=== PATIENT | female | born 1945 | race Caucasian/White ===

== ENCOUNTER → 2016-09-17 | Outpatient (CLI) | payer OTHER, MEDICARE ==
[~2016-09-17] MED LIST: AMOXICILLIN 50500 MG PO; ASPIR 8181 MG PO; CHLORTHALIDONE25 MG PO; COENZYME Q1050 M1 PO; COLACE 100 MG100 MG PO; CRESTOR10 MG PO; DUONEB 2.5-0.5 M3 ML INH; DURLAZA162.5 MG PO; FENOFIBRATE160 MG PO; FLUCONAZOLE 10100 MG PO; GLIMEPIRIDE4 MG PO; HOME MEDICATION PO; HYDROCODON-ACE1 EAC7 PO; LEVAQUIN 500 M500 M2 PO; LISINOPRIL10 MG PO; MAGNESIUM OXID400 MG PO; MELATONIN1 MG PO; METFORMIN HCL500 MG PO; MILK OF MA2400 MG/10 PO; NORVASC5 MG PO; NOVOLOG100 UNIT/1 SUBQ; OXYCODONE HCL5 MG PO; PLAVIX 75 MG TA75 M1 PO; PRENATAL PO; RELION NOV100 UNIT/2 SUBQ; REQUIP 0.25 M0.25 M1 PO; SANTYL OINTMENT30 G1 TOP; TORSEMIDE5 MG PO; TYLENOL325 MG PO; VASOTEC10 MG PO
== END ==
LOC: HYPER 08:00
DX: L89.154 Pressure ulcer of sacral region, stage 4 (principal); E11.22 Type 2 diabetes mellitus with diabetic chronic kidney disease; N18.9 Chronic kidney disease, unspecified; G20 Parkinson's disease; N18.6 End stage renal disease; Z79.84 Long term (current) use of oral hypoglycemic drugs; Z95.1 Presence of aortocoronary bypass graft

== ENCOUNTER → 2016-11-26 | Outpatient (CLI) | payer OTHER, MEDICARE | LOC: HYPER 07:40 | DX: L89.154 Pressure ulcer of sacral region, stage 4 (principal); G20 Parkinson's disease; E11.22 Type 2 diabetes mellitus with diabetic chronic kidney disease; I12.9 Hypertensive chronic kidney disease with stage 1 through stage 4 chronic kidney disease, or unspecified chronic kidney disease; N18.9 Chronic kidney disease, unspecified; Z79.84 Long term (current) use of oral hypoglycemic drugs; Z85.038 Personal history of other malignant neoplasm of large intestine; Z95.1 Presence of aortocoronary bypass graft ==

== ENCOUNTER → 2017-01-03 | Outpatient (CLI) | payer OTHER, MEDICARE | LOC: HYPER 07:10 | DX: L89.154 Pressure ulcer of sacral region, stage 4 (principal); E11.22 Type 2 diabetes mellitus with diabetic chronic kidney disease; I12.9 Hypertensive chronic kidney disease with stage 1 through stage 4 chronic kidney disease, or unspecified chronic kidney disease; N18.9 Chronic kidney disease, unspecified; I25.10 Atherosclerotic heart disease of native coronary artery without angina pectoris; Z79.84 Long term (current) use of oral hypoglycemic drugs; Z85.038 Personal history of other malignant neoplasm of large intestine ==

== ENCOUNTER 2017-02-08 12:06 | Inpatient (IN) | payer OTHER, MEDICARE ==
[~2017-02-08] VITALS: Ht 157.5 cm; Wt 66.2 kg
--- NOTE | ~2017-02-08 | H ---
[facility] [place] [address] HISTORY AND PHYSICAL Name: ZENAIDA LAMAS Lencho Room #: 537-P [facility] IN ..#: [id number] Admission: 02/08/17 Attend Phys: Shea Martines MD Discharge: 02/11/17 Date of : 47 Report #: [id number] THIS REPORT FOR: //name// CC: Wyatt Martines DATE OF SERVICE: 02/08/2017 CHIEF COMPLAINT: Back pain. HISTORY OF PRESENT ILLNESS: The patient is a 71-year-old female with multiple medical problems, including history of osteoporosis, who has had back pain for 10 days or so. The patient states that back pain started gradually. She does not recall any falls. She normally walks with a walker, but at this time, it was very difficult for her to ambulate. She presented to the Emergency Room. X-ray showed T12 vertebral fracture, age undetermined. The patient reports previous C4 and C5 fractures. She also had hip fracture. She states that she cannot tolerate osteoporosis medications. PAST MEDICAL HISTORY: 1. Coronary artery disease, status post coronary artery bypass grafting surgery in 04/2016. 2. Non-STEMI in 04/2016. 3. Hypertension. 4. Dyslipidemia. 5. Diabetes mellitus type 2. 6. Carotid stenosis. 7. Chronic Lyme's disease. 8. Chronic sacral wound. CURRENT MEDICATIONS: The patient is on amoxicillin 500 mg t.i.d., aspirin 325 mg a day, Colace 100 mg as needed, enalapril 10 mg b.i.d., fenofibrate 160 mg a day, glimepiride 2 mg a day, torsemide 10 mg a day, magnesium oxide 400 mg b.i.d. FAMILY HISTORY: Reviewed and not pertinent to the patient's current condition. SOCIAL HISTORY: The patient lives by herself. She does not smoke cigarettes and does not drink alcohol. REVIEW OF SYSTEMS: As above in HPI section, all others negative. PHYSICAL EXAMINATION: GENERAL: The patient is an elderly female who looks uncomfortable due to ongoing symptoms. VITAL SIGNS: Her blood pressure now is 139/58, from 206/87. Heart rate is 95, [facility] [address] [place] [address] HISTORY AND PHYSICAL Name: ZENAIDA LAMAS Room #: 537-P [facility]#: [id number] Admission: 02/08/17 Attend Phys: Shea Martines MD Discharge: 02/11/17 Date of : 47 Report #: [id number] respiration is 18, and temperature is 98.7. HEENT: Pupils are equal. Eye movements are normal. Sclerae are anicteric. Oral mucosa is moist. Ear examination is deferred. NECK: Supple. Thyromegaly is not palpated. RESPIRATORY: Chest moves symmetrically with breathing. Lungs are clear to auscultation bilaterally. CARDIOVASCULAR: The patient has 2/6 systolic murmur. Heart rate is regular. GASTROINTESTINAL: Abdomen is soft, nondistended and nontender. Bowel sounds are present. Hepatomegaly or splenomegaly is not palpated. MUSCULOSKELETAL: There is no edema, cyanosis or clubbing. Range of motion is normal. NEUROLOGIC: The patient is alert and oriented x 3. Her examination is nonfocal, and she has no motor or sensory deficits. SKIN: Skin is dry and warm. The patient has chronic sacral wound, that is covered with dressing. LABORATORY DATA: Basic metabolic profile is essentially normal, except with glucose of 274. CBC shows mild anemia with hemoglobin of 11.1, which is higher than baseline. White count and platelets are normal. X-ray showed T12 vertebral fracture, age is not determined. ASSESSMENT AND PLAN: 1. Acute onset of the back pain, 10 days' duration, T12 vertebral fracture, age undetermined, suspected on the x-ray. For further evaluation, we will obtain CT scan, as well as consult interventional radiologist for possible kyphoplasty. 2. Accelerated hypertension. Likely related to pain. Blood pressure much improved since the patient came in here. Home medications will be continued. 3. Diabetes mellitus type 2. Elevated blood sugar of greater than 200. We will check hemoglobin A1c. Glimepiride will be continued unchanged. Sliding scale Humalog will be used for elevated blood sugars. 4. Coronary artery disease, history of non-ST elevation myocardial infarction, status post coronary artery bypass grafting surgery in 04/2016. Stable. The patient has no chest pain. 5. Prophylaxis. We will use SCDs, and avoid anticoagulation for anticipated kyphoplasty. <ELECTRONICALLY SIGNED> By: Shea Martines MD 02/16/17 1807 1702 1859 Shea Martines MD /nt
--- NOTE | ~2017-02-08 | D ---
[facility] [address] DISCHARGE SUMMARY Name: ADAMSZENAIDA Lencho Room #: 537-P [facility] IN .R.#: [id number] Admission: 02/08/17 Attend Phys: Shea Martines MD Discharge: 02/11/17 Date of : 47 Report #: [id number] THIS REPORT FOR: //name// CC: Wyatt Martines DATE OF SERVICE: 02/11/2017 HISTORY OF PRESENT ILLNESS: The patient is a 71-year-old female with multiple medical problems, who came to the hospital with severe back pain. Please refer to the admission H and P for details. In brief, the patient was found to have T12 vertebral fracture. HOSPITALIZATION COURSE: The patient was hospitalized for T12 vertebral fracture. Interventional radiologist was consulted. The patient had MRI done, that was consistent with acute or subacute fracture. The patient had kyphoplasty on 02/10/2017. After kyphoplasty, the patient did much better, and pain was much better controlled. The patient was seen and evaluated by physical therapist, and rehab and jail facility is recommended. Currently, the patient's condition is acceptable, as documented in the patient's chart. DISCHARGE DIAGNOSIS: T12 vertebral fracture, status post kyphoplasty on 02/10/2017. The pain is much better controlled. SECONDARY DIAGNOSES: Includes hypertension, dyslipidemia, myocardial infarction in April 2016, status post coronary artery bypass grafting surgery in April 2016, diabetes mellitus type 2, out of control with A1c of 8.2%; carotid stenosis, chronic Lyme disease, and chronic sacral wound, followed by wound care clinic. DISCHARGE MEDICATIONS: Please refer to the medication reconciliation list. FOLLOWUP PLAN: 1. Follow up in the wound care clinic next week as planned. 2. Follow up with the primary care physician in 1-2 weeks. [facility] [address] [place] [address] DISCHARGE SUMMARY Name: ZENAIDA LAMAS Room #: 537-P [facility] IN [facility]#: [id number] Admission: 02/08/17 Attend Phys: Shea Martines MD Discharge: 02/11/17 Date of : 47 Report #: [id number] I spent about 30 minutes to coordinate the patient's discharge from the hospital. <ELECTRONICALLY SIGNED> By: Shea Martines MD 02/16/17 1807 1353 1512 Shea Martines MD /nt
[2017-02-08 12:06] VITALS: BP 206/87; BP 2086/87
[2017-02-08] MEDS ORDERED: TORSEMIDE10 MG PO (12:58)
[2017-02-08] MEDS ORDERED: FENOFIBRATE160 MG PO (12:58)
[2017-02-08] MEDS ORDERED: AMARYL2 MG PO (12:58)
[2017-02-08] MEDS ORDERED: COLACE100 MG PO (12:58)
[2017-02-08] MEDS ORDERED: VASOTEC10 MG PO (12:59)
[2017-02-08] MEDS ORDERED: MAGNESIUM OXID400 MG PO (12:59)
[2017-02-08] MEDS ORDERED: ASPIRIN325 PO (12:59)
[2017-02-08] MEDS ORDERED: AMOXICILLIN500 M1 PO (13:01)
[2017-02-08 15:02] LABS: ABSOLUTE NEUTROPHILS 7.3 thou/uL (1.4-8.2); BASOPHILS 0.8 % (0.0-2.0); EOSINOPHILS 0.7 % (0.0-3.0); HEMATOCRIT 32.4 % (37.0-47.0); HEMOGLOBIN 11.1 gm/dL (12.0-15.0); LYMPHOCYTES 15.9 % (24.0-44.0); MCH 29.8 pg (26.0-34.0); MCHC 34.2 g/dL (28.0-37.0); MCV 86.9 fL (80.0-100.0); MONOCYTES 7.9 % (1.0-8.0); PLATELET COUNT 263 thou/uL (150-400); POLYS 74.7 % (36.0-66.0); RBC 3.72 mil/uL (4.20-5.00); RDW 13.7 % (10.5-14.5); WBC 9.7 thou/uL (4.0-11.0)
[2017-02-08 15:04] LABS: MANUAL DIFF NO
[2017-02-08 15:08] LABS: CALCIUM 10.1 mg/dL (8.5-10.1); CREATININE 1.3 mg/dL (0.6-1.0); POTASSIUM 3.9 mmol/L (3.5-5.1)
[2017-02-08 16:05] LABS: URINE BILIRUBIN NEGATIVE (Negative); URINE BLOOD NEGATIVE (Negative); URINE COLOR YELLOW; URINE GLUCOSE-RANDOM* NEGATIVE (Negative); URINE KETONES NEGATIVE (Negative); URINE LEUKOCYTES-REFLEX NEGATIVE (Negative); URINE PROTEIN (DIPSTICK) 2+ (Negative); URINE UROBILINOGEN 0.2 E.U./dl (0.2-1.0)
[2017-02-08 16:22] LABS: AMORPHOUS URATES Few /LPF (None Seen); HYALINE CASTS 0-3 Few /LPF (None Seen); SQUAMOUS 0-3 Few /LPF (0-3); URINE RBC 0-2 Rare /HPF (0-2); URINE WBC-REFLEX None Seen /HPF (0-5)
[2017-02-08 19:23] VITALS: BP 156/67
[2017-02-08 20:38] VITALS: BP 134/52
[2017-02-09 03:58] VITALS: BP 106/39
[2017-02-09 04:11] LABS: GLYCOHEMOGLOBIN (HGB A1C) 8.2 % (4.8-5.6)
[2017-02-09 07:34] VITALS: BP 105/45
[2017-02-09 15:58] VITALS: BP 120/51
[2017-02-09 17:57] LABS: PROTIME 10.8 Seconds (9.3-11.4)
[2017-02-09 20:00] VITALS: BP 124/35
[2017-02-10] VITALS (7 sets, daily range): BP systolic 107–161; BP diastolic 42–72
[2017-02-11 02:59] VITALS: BP 143/63
[2017-02-11 08:43] VITALS: BP 151/81
[2017-02-11] MEDS ORDERED: HYDROCODON-ACE1 EAC7 PO (13:59)
[2017-02-11] MEDS ORDERED: LOPERAMIDE 2 MG2 M1 PO (14:04)
== END 2017-02-11 15:25 | DRG 515 ==
LOC: ER 12:06 → EROBS 15:16 → 5S 15:16 → EROBS 16:54 → ER 16:54 → 5S 20:15
PROVIDERS: Emergency Medicine; Internal Medicine Endocrinology, Diabetes & Metabolism; Radiology Diagnostic Radiology
PROC: 0PU43JZ Supplement Thoracic Vertebra with Synthetic Substitute, Percutaneous Approach (ICD-10-PCS; principal; 2017-02-10)
PROC: 0PS43ZZ Reposition Thoracic Vertebra, Percutaneous Approach (ICD-10-PCS; principal; 2017-02-10)
DX: M80.08XA Age-related osteoporosis with current pathological fracture, vertebra(e), initial encounter for fracture (principal); E43 Unspecified severe protein-calorie malnutrition; A69.20 Lyme disease, unspecified; I10 Essential (primary) hypertension; E11.65 Type 2 diabetes mellitus with hyperglycemia; I25.10 Atherosclerotic heart disease of native coronary artery without angina pectoris; G20 Parkinson's disease; E78.5 Hyperlipidemia, unspecified; R19.7 Diarrhea, unspecified; L89.150 Pressure ulcer of sacral region, unstageable; Z53.29 Procedure and treatment not carried out because of patient's decision for other reasons; Z95.1 Presence of aortocoronary bypass graft; Z88.1 Allergy status to other antibiotic agents; Z88.2 Allergy status to sulfonamides; Z85.038 Personal history of other malignant neoplasm of large intestine; I25.2 Old myocardial infarction; Z88.6 Allergy status to analgesic agent; Z91.041 Radiographic dye allergy status; Z98.891 History of uterine scar from previous surgery; Z68.26 Body mass index [BMI] 26.0-26.9, adult; Z79.82 Long term (current) use of aspirin; Z79.899 Other long term (current) drug therapy; Z91.81 History of falling
CPT/HCPCS: 10086; 62110; 62900; 70005

== ENCOUNTER → 2017-04-11 | Outpatient (CLI) | payer OTHER, MEDICARE ==
[~2017-04-11] MED LIST changes: +AMARYL2 MG PO; +AMOXICILLIN500 M1 PO; +ASPIRIN325 PO; +COLACE100 MG PO; +LOPERAMIDE 2 MG2 M1 PO; +TORSEMIDE10 MG PO
--- NOTE | ~2017-04-11 | H ---
[facility] [place] [address] HISTORY AND PHYSICAL Name: ZENAIDA LAMAS Room #: [facility].#: [id number] Admission: Attend Phys: Ifeanyi Rodriguez MD Discharge: Date of : 47 Report #: [id number] THIS REPORT FOR: //name// CC: Wyatt Rodriguez DATE OF SERVICE: 02/09/2017 CHIEF COMPLAINT: Sacrococcygeal ulcer. HISTORY OF PRESENT ILLNESS: This is a 71-year-old white female who has been a patient if mine for several months. We have been following for sacrococcygeal ulcer. Up to initially was had been down to the bone consistent with stage IV, so it was healing actually fairly well. The patient states, however, over the past several days, approximately 10 days, she has had progressed back pain, has been unable to get out of bed or turn herself and she thinks that the ulcer was actually gotten worse. The patient states normally she is able to walker; however because of her severe back pain, has been hurtful her to ambulate. While in the Emergency Department, the patient was found to have a compression infection at T12, Interventional radiology has been consulted for that. I am asked to assist in the care of the ulceration in her sacrococcygeal region. PAST MEDICAL HISTORY: Coronary artery disease, status post cardiac bypass, history of hypertension, dyslipidemia, type 2 diabetes, carotid stenosis, chronic sacral ulcer. CURRENT MEDICATIONS: Multiple, I reviewed the patient's medication list. ALLERGIES: SULFA, IODINE, DOXYCYCLINE, METOPROLOL. FAMILY HISTORY: Not pertinent to current medical condition. 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 REVIEW OF SYSTEMS: CONSTITUTIONAL: The patient denies fevers or chills. NEUROLOGIC: The patient has overall generalized weakness, but no isolated weakness in arms or legs. EYES: No complaints. ENT: No complaints. CARDIAC: The patient denies chest pain, palpitations, peripheral edema. RESPIRATORY: The patient denies shortness of breath, cough, wheezes. GASTROINTESTINAL: The patient denies nausea, vomiting, diarrhea. MUSCULOSKELETAL: The patient has pain in her back. SKIN: There is a chronic ulcer of sacrococcygeal region. [address] [address] HISTORY AND PHYSICAL Name: ZENAIDA LAMAS Room #: [facility]#: [id number] Admission: Attend Phys: Ifeanyi Rodriguez MD Discharge: Date of : 47 Report #: [id number] PHYSICAL EXAMINATION: VITAL SIGNS: T-max is a 36.6, rest of the vital signs stable. GENERAL: This is an alert and oriented x 3, chronically ill appearing white female who is in mild to moderate distress secondary to pain. HEENT: Normocephalic, atraumatic, mucous membranes are dry. Pupils are round. Sclerae white. NECK: Shows no masses or JVD. BACK: Tender to percussion in lower lumbar thoracolumbar region, but no signs of any open ulcerations or wounds. LUNGS: Slightly diminished breath sounds heard throughout. CHEST: Nontender. HEART: Regular. ABDOMEN: Soft. EXTREMITIES: The patient moves all extremities with some difficulty in lower extremity secondary to back pain. Bilateral heels are intact. Distal neurovascular otherwise intact. Evaluation of sacrococcygeal area reveals an ulceration that measures 3.0 x 3.0 x 0.5 cm, it is unstageable given the significant amount of slough noted within the central portion, there was also moist eschars noted over the central region as well. Periulcer is otherwise mildly macerated but intact. No signs of cellulitis. No obvious evidence of any deeper structures noted. NEUROLOGIC: Cranial nerves 2-12 are grossly. Motor and sensory grossly intact. LABORATORY VALUES: White cell count 9.7, hemoglobin 11.1. WOUND CARE COURSE: At this time, I spoke with the patient. I agree with her that the ulceration unfortunately has gotten worse. Most likely when given her recent debilitation and prolonged bed breast, we will start patient on low air loss mattress as well as apply morphine, Silvadene compound to the area with zinc twice daily. After this covered with Optifoam border. The patient will be turned every 2 hours. The patient being encouraged to keep off the wound as much as possible, other ulcerations as much as possible. The patient is currently being evaluated by Radiology for evaluation for an MRI and then possible intervention of the compression fracture if necessary. IMPRESSION: 1. Chronic sacrococcygeal ulcer, unstageable at this time given significant amount of eschar present on admission. 2. T12 compression fracture, age indeterminate. 3. Generalized debility secondary to chronic recent back pain and overall medical comorbidities. 4. Type 2 diabetes. [facility] [address] [place] [address] HISTORY AND PHYSICAL Name: ZENAIDA LAMAS Room #: [facility]#: [id number] Admission: Attend Phys: Ifeanyi Rodriguez MD Discharge: Date of : 47 Report #: [id number] PLAN: Described in length as above. We will continue to follow the patient. I appreciate the ability to consult. <ELECTRONICALLY SIGNED> By: Ifeanyi Rodriguez MD 03/01/17 1727 1828 0613 Ifeanyi Rodriguez MD /nt
== END ==
LOC: HYPER
DX: E11.622 Type 2 diabetes mellitus with other skin ulcer (principal); L89.154 Pressure ulcer of sacral region, stage 4; Z79.84 Long term (current) use of oral hypoglycemic drugs; E11.22 Type 2 diabetes mellitus with diabetic chronic kidney disease; I12.9 Hypertensive chronic kidney disease with stage 1 through stage 4 chronic kidney disease, or unspecified chronic kidney disease; N18.9 Chronic kidney disease, unspecified; I25.10 Atherosclerotic heart disease of native coronary artery without angina pectoris; Z85.038 Personal history of other malignant neoplasm of large intestine; Z95.1 Presence of aortocoronary bypass graft

== ENCOUNTER → 2017-05-02 | Outpatient (CLI) | payer OTHER, MEDICARE | LOC: HYPER 07:09 | DX: L89.154 Pressure ulcer of sacral region, stage 4 (principal); E11.622 Type 2 diabetes mellitus with other skin ulcer; L98.491 Non-pressure chronic ulcer of skin of other sites limited to breakdown of skin; E11.22 Type 2 diabetes mellitus with diabetic chronic kidney disease; I12.9 Hypertensive chronic kidney disease with stage 1 through stage 4 chronic kidney disease, or unspecified chronic kidney disease; N18.9 Chronic kidney disease, unspecified; I25.10 Atherosclerotic heart disease of native coronary artery without angina pectoris; G20 Parkinson's disease; Z85.038 Personal history of other malignant neoplasm of large intestine; Z95.1 Presence of aortocoronary bypass graft ==

== ENCOUNTER → 2017-05-30 | Outpatient (CLI) | payer OTHER, MEDICARE | LOC: HYPER 07:01 | DX: E11.622 Type 2 diabetes mellitus with other skin ulcer (principal); L89.154 Pressure ulcer of sacral region, stage 4; L98.491 Non-pressure chronic ulcer of skin of other sites limited to breakdown of skin; E11.22 Type 2 diabetes mellitus with diabetic chronic kidney disease; I12.9 Hypertensive chronic kidney disease with stage 1 through stage 4 chronic kidney disease, or unspecified chronic kidney disease; N18.9 Chronic kidney disease, unspecified; Z79.84 Long term (current) use of oral hypoglycemic drugs; Z95.1 Presence of aortocoronary bypass graft ==

== ENCOUNTER → 2017-06-02 | Outpatient (CLI) | payer OTHER, MEDICARE | LOC: MRI 05-26 08:15 | DX: L89.154 Pressure ulcer of sacral region, stage 4 (principal); E11.22 Type 2 diabetes mellitus with diabetic chronic kidney disease ==

== ENCOUNTER → 2017-08-02 | Outpatient (CLI) | payer OTHER, MEDICARE | LOC: HYPER 07:15 | DX: E11.622 Type 2 diabetes mellitus with other skin ulcer (principal); L98.491 Non-pressure chronic ulcer of skin of other sites limited to breakdown of skin; L89.154 Pressure ulcer of sacral region, stage 4; E11.22 Type 2 diabetes mellitus with diabetic chronic kidney disease; I12.9 Hypertensive chronic kidney disease with stage 1 through stage 4 chronic kidney disease, or unspecified chronic kidney disease; N18.9 Chronic kidney disease, unspecified; Z79.84 Long term (current) use of oral hypoglycemic drugs; I25.10 Atherosclerotic heart disease of native coronary artery without angina pectoris; G20 Parkinson's disease; Z85.038 Personal history of other malignant neoplasm of large intestine; Z95.1 Presence of aortocoronary bypass graft ==

== ENCOUNTER → 2017-08-04 | Outpatient (CLI) | payer OTHER, MEDICARE ==
--- NOTE | ~2017-08-04 | 2DMMODE ---
[facility] [email or web address] [address] 2 D/M-MODE ECHOCARDIOGRAM Name: ZENAIDA LAMAS Room #: REG [facility]#: [id number] Admission: 08/04/17 Attend Phys: Melvin Pagan MD Discharge: Date of : 47 Date of Service: 08/04/17 1239 Report #: [id number] THIS REPORT FOR: //name// APPROVED REPORT Study performed: 08/04/2017 12:39:02 EXAM: Comprehensive 2D, Doppler, and color-flow Echocardiogram Patient Location: Echo lab Status: routine BSA: 1.73 BP: 184/80 mmHg Other Information Study Quality: Adequate Indications Diabetes CAD Hypertension/HDD CABG 04/2016 2D Dimensions RVDd: 33.71 mm LVEF(%): 61.82 (>50%) IVSd: 14.01 (7-11mm) LVOT Diam: 17.23 (18-24mm) LVDd: 39.80 mm PWd: 14.03 (7-11mm) Ascending Ao: 31.73 (22-36mm) LVDs: 26.75 (25-40mm) Aortic Root: 26.33 mm IVC: 15.00 mm Ordonez's LVEF: 61.82 % Volumes Left Atrial Volume (Systole) Single Plane 4CH: 38.11 mL Single Plane 2CH: 77.13 mL LA ESV Index: 35.00 mL/m2 Aortic Valve AoV Peak Surendra.: 1.79 m/s AO Peak Gr.: 12.88 mmHg LVOT Max P.63 mmHg LVOT Max V: 1.08 m/s MAXIME Vmax: 1.40 cm2 [facility] [address] [place] [address] 2 D/M-MODE ECHOCARDIOGRAM Name: ZENAIDA LAMAS Room #: [facility]#: [id number] Admission: 08/04/17 Attend Phys: Melvin Pagan MD Discharge: Date of : 47 Date of Service: 08/04/17 1239 Report #: [id number] Mitral Valve E/A Ratio: 0.9 MV Decel. Time: 257.99 ms MV E Max Surendra.: 1.06 m/s MV A Surendra.: 1.13 m/s MV PHT: 74.82 ms IVRT: 107.27 ms Pulmonary Valve PV Peak Surendra.: 1.09 m/s PV Peak Gr.: 4.75 mmHg Pulmonary Vein P Vein S: 0.71 m/s P Vein A: 0.22 m/s P Vein D: 0.48 m/s P Vein A Dur.: 83.0 msec P Vein S/D Ratio: 1.48 Tricuspid Valve TR Peak Surendra.: 2.86 m/s RAP Estimate: 5.00 mmHg TR Peak Gr.: 32.62 mmHg PA Pressure: 38.00 mmHg Left Ventricle The left ventricle is normal size. Mild concentric left ventricular hypertrophy. The left ventricular systolic function is normal. The left ventricular ejection fraction is within the normal range. LVEF is 60%. Mild diastolic dysfunction is present (impaired relaxation pattern). Right Ventricle The right ventricle is normal size. The right ventricular systolic function is normal. Atria Left atrium is at the upper limits of normal. Right atrium is at the upper limits of normal. Aortic Valve Mild aortic valve sclerosis. No aortic regurgitation is present. There is no aortic valvular stenosis. Mitral Valve Mild mitral annular calcification. Trace mitral regurgitation. No evidence of mitral valve stenosis. Tricuspid Valve The tricuspid valve is normal in structure. Trace tricuspid [facility] [address] [place] [address] 2 D/M-MODE ECHOCARDIOGRAM Name: ZENAIDA LAMAS Lencho Room #: REG [facility]#: [id number] Admission: 08/04/17 Attend Phys: Melvin Pagan MD Discharge: Date of : 47 Date of Service: 08/04/17 1239 Report #: [id number] regurgitation. PAP is estimated at 38 mmHg. Pulmonic Valve Pulmonic valve is not well visualized. There is no pulmonic valvular regurgitation. Great Vessels The aortic root is normal in size. IVC is normal in size and collapses >50% with inspiration. Pericardium There is no pericardial effusion. <Conclusion> The left ventricle is normal size. Mild concentric left ventricular hypertrophy. The left ventricular systolic function is normal. Mild diastolic dysfunction is present (impaired relaxation pattern). The right ventricle is normal size. Left atrium is at the upper limits of normal. Mild aortic valve sclerosis. Trace mitral regurgitation. Trace tricuspid regurgitation. PAP is estimated at 38 mmHg. <ELECTRONICALLY SIGNED> By: Melvin Pagan MD 08/04/17 1239 1239 1239 Melvin Pagan MD /INF
== END ==
LOC: CV 09:32
DX: I51.7 Cardiomegaly (principal); I25.10 Atherosclerotic heart disease of native coronary artery without angina pectoris; I10 Essential (primary) hypertension; E11.9 Type 2 diabetes mellitus without complications

== ENCOUNTER → 2017-09-12 | Outpatient (CLI) | payer OTHER, MEDICARE | LOC: HYPER 07:13 | DX: L89.154 Pressure ulcer of sacral region, stage 4 (principal); E11.22 Type 2 diabetes mellitus with diabetic chronic kidney disease; I12.9 Hypertensive chronic kidney disease with stage 1 through stage 4 chronic kidney disease, or unspecified chronic kidney disease; N18.9 Chronic kidney disease, unspecified; I25.10 Atherosclerotic heart disease of native coronary artery without angina pectoris; G20 Parkinson's disease; Z85.038 Personal history of other malignant neoplasm of large intestine; Z95.1 Presence of aortocoronary bypass graft; Z79.84 Long term (current) use of oral hypoglycemic drugs; Z90.49 Acquired absence of other specified parts of digestive tract ==

== ENCOUNTER → 2017-10-31 | Outpatient (CLI) | payer OTHER, MEDICARE | LOC: HYPER 10-13 06:59 | DX: E11.622 Type 2 diabetes mellitus with other skin ulcer (principal); L89.154 Pressure ulcer of sacral region, stage 4; L98.491 Non-pressure chronic ulcer of skin of other sites limited to breakdown of skin; E11.22 Type 2 diabetes mellitus with diabetic chronic kidney disease; I12.9 Hypertensive chronic kidney disease with stage 1 through stage 4 chronic kidney disease, or unspecified chronic kidney disease; N18.9 Chronic kidney disease, unspecified; I25.10 Atherosclerotic heart disease of native coronary artery without angina pectoris; Z85.038 Personal history of other malignant neoplasm of large intestine; Z79.84 Long term (current) use of oral hypoglycemic drugs; Z95.1 Presence of aortocoronary bypass graft ==

== ENCOUNTER → 2017-11-28 | Outpatient (CLI) | payer OTHER, MEDICARE | LOC: HYPER 06:59 | DX: E11.622 Type 2 diabetes mellitus with other skin ulcer (principal); L89.154 Pressure ulcer of sacral region, stage 4; L98.491 Non-pressure chronic ulcer of skin of other sites limited to breakdown of skin; E11.22 Type 2 diabetes mellitus with diabetic chronic kidney disease; I12.9 Hypertensive chronic kidney disease with stage 1 through stage 4 chronic kidney disease, or unspecified chronic kidney disease; N18.9 Chronic kidney disease, unspecified; I25.10 Atherosclerotic heart disease of native coronary artery without angina pectoris; Z85.038 Personal history of other malignant neoplasm of large intestine; Z95.1 Presence of aortocoronary bypass graft; Z79.84 Long term (current) use of oral hypoglycemic drugs ==

== ENCOUNTER → 2017-12-19 | Outpatient (CLI) | payer OTHER, MEDICARE | LOC: HYPER 14:16 | DX: E11.622 Type 2 diabetes mellitus with other skin ulcer (principal); L98.491 Non-pressure chronic ulcer of skin of other sites limited to breakdown of skin; L89.154 Pressure ulcer of sacral region, stage 4; E11.22 Type 2 diabetes mellitus with diabetic chronic kidney disease; I12.9 Hypertensive chronic kidney disease with stage 1 through stage 4 chronic kidney disease, or unspecified chronic kidney disease; N18.9 Chronic kidney disease, unspecified; Z79.84 Long term (current) use of oral hypoglycemic drugs; I25.10 Atherosclerotic heart disease of native coronary artery without angina pectoris; Z85.038 Personal history of other malignant neoplasm of large intestine; Z95.1 Presence of aortocoronary bypass graft ==

== ENCOUNTER → 2017-12-22 | Outpatient (CLI) | payer OTHER, MEDICARE ==
--- NOTE | ~2017-12-22 | 2DMMODE ---
[facility] [employer] [place] [address] 2 D/M-MODE ECHOCARDIOGRAM Name: ZENAIDA LAMAS Room #: REG [facility]#: [id number] Admission: 12/22/17 Attend Phys: Melvin Pagan MD Discharge: Date of : 47 Date of Service: 12/22/17 0954 Report #: [id number] THIS REPORT FOR: //name// APPROVED REPORT Study performed: 12/22/2017 09:13:47 EXAM: Comprehensive 2D, Doppler, and color-flow Echocardiogram Patient Location: Out-Patient Status: routine BSA: 1.74 HR: 63 bpm BP: 174/29 mmHg Rhythm: NSR Other Information Study Quality: Adequate Indications CAD. Hx: CABG, HTN, DM 2D Dimensions RVDd: 35.39 mm LVEF(%): 60.20 (>50%) IVSd: 12.00 (7-11mm) LVOT Diam: 17.95 (18-24mm) LVDd: 43.62 mm PWd: 10.00 (7-11mm) LVDs: 29.72 (25-40mm) Aortic Root: 34.08 mm Ordonez's LVEF: 60.20 % Volumes Left Atrial Volume (Systole) Single Plane 4CH: 44.32 mL Single Plane 2CH: 53.76 mL LA ESV Index: 29.00 mL/m2 Aortic Valve AoV Peak Surendra.: 1.90 m/s AO Peak Gr.: 14.44 mmHg LVOT Max P.72 mmHg AO Mean Gr.: 6.50 mmHg AO V2 Mean: 1.19 m/s LVOT Max V: 1.20 m/s AO V2 VTI: 41.30 cm MAXIME Vmax: 1.59 cm2 Mitral Valve [facility] [employer] [place] [address] 2 D/M-MODE ECHOCARDIOGRAM Name: ZENAIDA LAMAS Room #: [facility]#: [id number] Admission: 12/22/17 Attend Phys: Melvin Pagan MD Discharge: Date of : 47 Date of Service: 12/22/17 0954 Report #: [id number] E/A Ratio: 0.9 MV Decel. Time: 257.64 ms MV E Max Surendra.: 1.04 m/s MV A Surendra.: 1.19 m/s MV PHT: 74.72 ms IVRT: 87.66 ms Pulmonary Valve PV Peak Surendra.: 1.02 m/s PV Peak Gr.: 4.13 mmHg Pulmonary Vein P Vein S: 0.71 m/s P Vein A: 0.26 m/s P Vein D: 0.54 m/s P Vein A Dur.: 110.7 msec P Vein S/D Ratio: 1.31 Tricuspid Valve TR Peak Surendra.: 2.70 m/s RAP Estimate: 5.00 mmHg TR Peak Gr.: 29.16 mmHg PA Pressure: 34.00 mmHg Left Ventricle The left ventricle is normal size. Left ventricular systolic function is normal. LVEF is 60-65%. Mild diastolic dysfunction is present (impaired relaxation pattern). Right Ventricle The right ventricle is normal size. The right ventricular systolic function is normal. Atria The left atrium size is normal. The right atrium size is normal. Aortic Valve The Aortic valve is sclerotic. Trace aortic regurgitation. There is no aortic valvular stenosis. Mitral Valve The mitral valve is normal in structure. Mild mitral annular calcification. Mild mitral regurgitation. No evidence of mitral valve stenosis. Tricuspid Valve The tricuspid valve is normal in structure. Mild to moderate tricuspid regurgitation. Estimated PAP is 35mmHg. [address] [address] 2 D/M-MODE ECHOCARDIOGRAM Name: ZENAIDA LAMAS Room #: REG [facility]#: [id number] Admission: 12/22/17 Attend Phys: Melvin Pagan MD Discharge: Date of : 47 Date of Service: 12/22/17 0954 Report #: [id number] Pulmonic Valve Pulmonic valve is not well visualized. Trace pulmonic regurgitation. Great Vessels The aortic root is normal in size. IVC is normal in size and collapses >50% with inspiration. Pericardium There is no pericardial effusion. <Conclusion> The left ventricle is normal size. Left ventricular systolic function is normal. Mild diastolic dysfunction is present (impaired relaxation pattern). The right ventricle is normal size. The left atrium size is normal. The right atrium size is normal. The Aortic valve is sclerotic. Mild mitral regurgitation. Mild to moderate tricuspid regurgitation. Estimated PAP is 35mmHg. <ELECTRONICALLY SIGNED> By: Melvin Pagan MD 12/22/17 0954 3 Melvin Pagan MD /INF
== END ==
LOC: NUC 07:40
DX: I25.10 Atherosclerotic heart disease of native coronary artery without angina pectoris (principal); E78.5 Hyperlipidemia, unspecified; I11.0 Hypertensive heart disease with heart failure; I50.9 Heart failure, unspecified; E11.9 Type 2 diabetes mellitus without complications; Z88.5 Allergy status to narcotic agent; Z88.1 Allergy status to other antibiotic agents; Z91.018 Allergy to other foods; Z91.041 Radiographic dye allergy status; Z88.2 Allergy status to sulfonamides; Z88.6 Allergy status to analgesic agent

== ENCOUNTER → 2018-01-02 | Outpatient (CLI) | payer OTHER, MEDICARE | LOC: HYPER 06:48 | DX: E11.622 Type 2 diabetes mellitus with other skin ulcer (principal); L98.491 Non-pressure chronic ulcer of skin of other sites limited to breakdown of skin; L89.154 Pressure ulcer of sacral region, stage 4; E11.22 Type 2 diabetes mellitus with diabetic chronic kidney disease; N18.9 Chronic kidney disease, unspecified; I25.10 Atherosclerotic heart disease of native coronary artery without angina pectoris; I10 Essential (primary) hypertension; Z79.84 Long term (current) use of oral hypoglycemic drugs; Z85.038 Personal history of other malignant neoplasm of large intestine; Z95.1 Presence of aortocoronary bypass graft ==

== ENCOUNTER → 2018-01-25 | Outpatient (CLI) | payer OTHER, MEDICARE | LOC: HYPER 06:41 | DX: E11.622 Type 2 diabetes mellitus with other skin ulcer (principal); L98.491 Non-pressure chronic ulcer of skin of other sites limited to breakdown of skin; L89.154 Pressure ulcer of sacral region, stage 4; E11.22 Type 2 diabetes mellitus with diabetic chronic kidney disease; I12.9 Hypertensive chronic kidney disease with stage 1 through stage 4 chronic kidney disease, or unspecified chronic kidney disease; N18.9 Chronic kidney disease, unspecified; I25.10 Atherosclerotic heart disease of native coronary artery without angina pectoris; Z79.84 Long term (current) use of oral hypoglycemic drugs; Z85.038 Personal history of other malignant neoplasm of large intestine ==

== ENCOUNTER → 2018-02-22 | Outpatient (CLI) | payer OTHER, MEDICARE | LOC: HYPER 06:45 | DX: S30.810A Abrasion of lower back and pelvis, initial encounter (principal); L89.154 Pressure ulcer of sacral region, stage 4; I12.9 Hypertensive chronic kidney disease with stage 1 through stage 4 chronic kidney disease, or unspecified chronic kidney disease; N18.9 Chronic kidney disease, unspecified; I25.10 Atherosclerotic heart disease of native coronary artery without angina pectoris; G20 Parkinson's disease; Z95.1 Presence of aortocoronary bypass graft; Z79.84 Long term (current) use of oral hypoglycemic drugs; Z85.038 Personal history of other malignant neoplasm of large intestine; X58.XXXA Exposure to other specified factors, initial encounter; Y93.89 Activity, other specified; Y92.89 Other specified places as the place of occurrence of the external cause; Y99.8 Other external cause status ==

== ENCOUNTER → 2018-03-22 | Outpatient (CLI) | payer OTHER, MEDICARE | LOC: HYPER 06:39 | DX: E11.622 Type 2 diabetes mellitus with other skin ulcer (principal); L89.154 Pressure ulcer of sacral region, stage 4; L98.491 Non-pressure chronic ulcer of skin of other sites limited to breakdown of skin; E11.22 Type 2 diabetes mellitus with diabetic chronic kidney disease; I12.9 Hypertensive chronic kidney disease with stage 1 through stage 4 chronic kidney disease, or unspecified chronic kidney disease; N18.9 Chronic kidney disease, unspecified; I25.10 Atherosclerotic heart disease of native coronary artery without angina pectoris; G20 Parkinson's disease; Z85.038 Personal history of other malignant neoplasm of large intestine; Z79.84 Long term (current) use of oral hypoglycemic drugs; Z95.1 Presence of aortocoronary bypass graft ==

== ENCOUNTER → 2018-04-19 | Outpatient (CLI) | payer OTHER, MEDICARE | LOC: HYPER 07:00 | DX: E11.622 Type 2 diabetes mellitus with other skin ulcer (principal); L89.154 Pressure ulcer of sacral region, stage 4; L98.491 Non-pressure chronic ulcer of skin of other sites limited to breakdown of skin; E11.22 Type 2 diabetes mellitus with diabetic chronic kidney disease; I12.9 Hypertensive chronic kidney disease with stage 1 through stage 4 chronic kidney disease, or unspecified chronic kidney disease; N18.9 Chronic kidney disease, unspecified; G20 Parkinson's disease; I25.10 Atherosclerotic heart disease of native coronary artery without angina pectoris; Z79.84 Long term (current) use of oral hypoglycemic drugs; Z85.038 Personal history of other malignant neoplasm of large intestine ==

== ENCOUNTER → 2018-06-08 | Outpatient (CLI) | payer OTHER, MEDICARE | LOC: HYPER 06:53 | DX: E11.622 Type 2 diabetes mellitus with other skin ulcer (principal); L89.154 Pressure ulcer of sacral region, stage 4; L98.491 Non-pressure chronic ulcer of skin of other sites limited to breakdown of skin; E11.22 Type 2 diabetes mellitus with diabetic chronic kidney disease; I12.0 Hypertensive chronic kidney disease with stage 5 chronic kidney disease or end stage renal disease; N18.9 Chronic kidney disease, unspecified; I25.10 Atherosclerotic heart disease of native coronary artery without angina pectoris; G20 Parkinson's disease; B02.22 Postherpetic trigeminal neuralgia; Z85.038 Personal history of other malignant neoplasm of large intestine; Z79.84 Long term (current) use of oral hypoglycemic drugs ==

== ENCOUNTER 2018-12-04 19:28 | Emergency (ER) | payer OTHER, MEDICARE ==
[~2018-12-04] VITALS: Ht 157.5 cm; Wt 78.5 kg
[2018-12-04 20:00] LABS: ABSOLUTE NEUTROPHILS 3.1 thou/uL (1.4-8.2); BASOPHILS 1.3 % (0.0-2.0); EOSINOPHILS 3.2 % (0.0-3.0); HEMATOCRIT 32.9 % (37.0-47.0); HEMOGLOBIN 11.1 gm/dL (12.0-15.0); LYMPHOCYTES 27.3 % (24.0-44.0); MCH 29.8 pg (26.0-34.0); MCHC 33.8 g/dL (28.0-37.0); MCV 88.3 fL (80.0-100.0); MONOCYTES 11.5 % (1.0-8.0); PLATELET COUNT 206 thou/uL (150-400); POLYS 56.7 % (36.0-66.0); RBC 3.73 mil/uL (4.20-5.00); WBC 5.4 thou/uL (4.0-11.0)
[2018-12-04 20:02] LABS: ANION GAP 11 mmol/L (7-16); BUN 55 mg/dL (7-18); CALCIUM 9.8 mg/dL (8.5-10.1); CHLORIDE 107 mmol/L (98-107); CO2 24 mmol/L (21-32); CREATININE 1.5 mg/dL (0.6-1.0); GLUCOSE 152 mg/dL (74-106); POTASSIUM 4.3 mmol/L (3.5-5.1); SODIUM 142 mmol/L (136-145)
[2018-12-04 20:11] LABS: ALBUMIN 3.6 g/dL (3.4-5.0); SGOT 27 U/L (15-37); SGPT 21 U/L (30-65); TOTAL BILIRUBIN 0.3 mg/dL (<0.1-1.0); TOTAL PROTEIN 6.9 g/dL (6.4-8.2); TROPONIN-I <0.06 ng/mL (<0.06)
[2018-12-04 21:00] LABS: URINE BILIRUBIN NEGATIVE (Negative); URINE BLOOD 2+ (Negative); URINE CLARITY CLEAR; URINE COLOR YELLOW; URINE GLUCOSE-RANDOM* NEGATIVE (Negative); URINE KETONES NEGATIVE (Negative); URINE LEUKOCYTES-REFLEX NEGATIVE (Negative); URINE NITRITE-REFLEX NEGATIVE (Negative); URINE PROTEIN (DIPSTICK) 2+ (Negative); URINE UROBILINOGEN 0.2 E.U./dl (0.2-1.0)
[2018-12-04 21:07] LABS: BACTERIA-REFLEX 1-9 Few /HPF (None Seen); SQUAMOUS 0-3 Few /LPF (0-3); URINE WBC-REFLEX 0-5 Rare /HPF (0-5)
[2018-12-04 21:08] LABS: CASTS None Seen /LPF (None Seen); CRYSTALS None Seen /LPF (None Seen); MUCUS 0-3 Light strn/LPF (None Seen)
[2018-12-04 22:56] VITALS: BP 167/50
--- NOTE | 2018-12-05 08:32 | EKG ---
[address] [address] ELECTROCARDIOGRAM REPORT Name: ZENAIDA LAMAS Room #: DEP [facility]#: [id number] ������������������ Admission: 12/04/18 ������������������ Attend Phys: Discharge: 12/04/18 ������������������ Date of : 47 Report #: [id number] ����������������������������������������������������������������� [id number] THIS REPORT FOR: //name// [facility] Test Date: 2018-12-04 Test Time: 20:13:54 Pat Name: ZENAIDA LAMAS Department: Room: Gender: F [employer]: MEI : 1945 Requested By: Laura Vick Order Number: [id number] MD: Suresh Oropeza Measurements Intervals [place] Rate: 76 P: [place]: QRS: 27 QRSD: 140 T: -7 QT: 402 QTc: 453 Interpretive Statements Sinus rhythm Right bundle branch block Inferior infarct, age indeterminate Compared to ECG 05/02/2016 07:16:01 Sinus rhythm no longer present Myocardial infarct finding still present Electronically Signed On 12-05-2018 8:31:51 CDT by Suresh Oropeza [email or web address] ��������������������������������������������� <ELECTRONICALLY SIGNED> ���������������������������������������� By: Suresh Oropeza MD ��������������������������������������������� 12/05/18 0831 12 12 Suresh Oropeza MD /MANINDER
== END 2018-12-04 22:58 | disposition home or self-care (01) ==
LOC: ER 19:28
PROVIDERS: Student in an Organized Health Care Education/Training Program
DX: E86.0 Dehydration (principal); R53.1 Weakness; G20 Parkinson's disease; I10 Essential (primary) hypertension; E11.9 Type 2 diabetes mellitus without complications; Z85.038 Personal history of other malignant neoplasm of large intestine; Z79.899 Other long term (current) drug therapy; Z88.1 Allergy status to other antibiotic agents; Z88.2 Allergy status to sulfonamides; Z88.5 Allergy status to narcotic agent; Z88.8 Allergy status to other drugs, medicaments and biological substances; Z91.041 Radiographic dye allergy status